=== PATIENT | male | born 1980 | race Caucasian/White ===

== ENCOUNTER 2019-10-03 11:38 | Emergency (ER) | payer SELFPAY ==
[~2019-10-03] VITALS: Ht 177.8 cm; Wt 84.0 kg
[2019-10-03] MEDS ORDERED: LIDOCAINE HCL/PF 1% 10 MG/ML 5ML VIAL IJ ONE (12:00)
[2019-10-03] MEDS ORDERED: IBUPROFEN 600MG TABLET PO ONE (12:00)
[2019-10-03] MEDS ORDERED: BACITRACIN ZINC OINT UDPKT TOP ONE (12:00)
[2019-10-03] MEDS ORDERED: TETANUS, DIPHTHERIA, PERTUSSIS VAC/PF 0.5ML (>7YR OLD) IM ONE (12:00)
[2019-10-03 13:15] VITALS: BP 112/77
== END 2019-10-03 13:40 | disposition home or self-care (01) ==
LOC: ER 11:38
DX: S61.215A Laceration without foreign body of left ring finger without damage to nail, initial encounter (principal); W27.8XXA Contact with other nonpowered hand tool, initial encounter; Y93.89 Activity, other specified; Y92.89 Other specified places as the place of occurrence of the external cause; R03.0 Elevated blood-pressure reading, without diagnosis of hypertension; Z23 Encounter for immunization
CPT/HCPCS: 12001; 73140; 90471; 90715; 99283; J3490